=== PATIENT | female | born 1975 | race African-American/Black ===

== ENCOUNTER 2019-10-03 16:44 | Observation (INO) ==
[2019-10-03] MEDS ORDERED: ONDANSETRON 4 MG/2 ML VIAL IV STA ×2 (17:23→18:35)
[2019-10-03] MEDS ORDERED: SODIUM CHLORIDE 0.9% 1,000 ML IV STA (17:23)
[2019-10-03 17:33] LABS: Apearance,Urine Slightly Hazy (Clear); Bacteria,Urine Occasional /HPF (Few); Bilirubin,Urine Negative (Negative); Blood, Urine Negative (Negative); Glucose,Urine (UA) Negative (Negative); Ketones,Urine 20 mg/dL (Negative); Mucus,Urine Occasional /LPF (Occasional); Nitrite,Urine Negative (Negative); Protein,Urine Negative; RBC,Urine 5 /HPF (0-4); Squamous Epithelial Cell,Urine Moderate /HPF (0-10); Urine Color Yellow (Yellow); Urine Specific Gravity 1.021 (1.001-1.035); Urine Urobilinogen < 2.0 EU/DL (0.2-1.0); WBC,Urine 2 /HPF (0-6)
[2019-10-03 18:08] LABS: Albumin 3.4 G/DL (3.4-5.0); Bilirubin,Total 0.4 MG/DL (0.2-1.0); Calcium 8.8 MG/DL (8.5-10.1); Osmolality,Calculated 272.7 MOS/KG (273-304); Total Protein 7.9 G/DL (6.4-8.3)
[2019-10-03 18:14] LABS: Basophils % 0.1 % (0.0-0.8); Hematocrit 35.4 VOL% (35.7-47.0); Hemoglobin 10.6 GM/DL (12.0-16.0); Immature Granulocytes % 0.3 %; Immature Granulocytes Absolute 0.03 #; Lymphocytes % 10.8 % (21.3-54.2); Mean Corpuscular HGB Conc 29.9 GM/DL (32-36); Mean Corpuscular Volume 74.7 FL (87-102); Mean Platelet Volume 10.4 FL (9.6-12.0); Monocytes % 3.6 % (1.7-12.7); Neutrophils % 85.2 % (38.7-73.9); Platelet Count 319 T/CUMM (130-400); Red Blood Count 4.74 MC/CUMM (3.8-5.5); Red Cell Distribution Width 15.6 % (9.3-17.3); White Blood Count 9.6 T/CUMM (4-12)
[2019-10-03] MEDS ORDERED: HYDROmorphone 2 MG/1 ML VIAL IV STA (19:15)
[2019-10-03] MEDS ORDERED: AMPICILLIN/SULBACTAM 3,000 MG in SODIUM CHLORIDE 0.9% 100 ML IV STA (19:16)
[2019-10-03] MEDS ORDERED: ONDANSETRON 4 MG/2 ML VIAL IV PRN (19:29)
[2019-10-03] MEDS ORDERED: HYDROmorphone 2 MG/1 ML VIAL IV PRN (19:29)
[2019-10-03] MEDS: PANTOPRAZOLE 40 MG TABLET PO SCH (21:26)
[2019-10-03] MEDS: LACTATED RINGERS 1,000 ML IV SCH (21:27)
[2019-10-04] MEDS: LACTATED RINGERS 1,000 ML IV SCH ×3 (03:11→17:19)
[2019-10-04] MEDS: AMPICILLIN/SULBACTAM 3,000 MG in SODIUM CHLORIDE 0.9% 100 ML IV SCH ×4 (04:26→22:32)
[2019-10-04] MEDS ORDERED: TISSUE ADHESIVE 1 EACH APPLICATOR TOP ONE (06:12)
[2019-10-04] MEDS ORDERED: BUPIVACAINE MPF 0.25% 30 ML VIAL ONE (06:12)
[2019-10-04] MEDS ORDERED: LIDOCAINE 1%/EPI INJ 20 ML VIAL ONE (06:12)
[2019-10-04] MEDS: PANTOPRAZOLE 40 MG TABLET PO SCH (09:43)
[2019-10-04] MEDS ORDERED: ACETAMINOPHEN 325 MG TABLET PO PRN (14:21)
[2019-10-05] MEDS: LACTATED RINGERS 1,000 ML IV SCH ×3 (01:58→23:45)
[2019-10-05] MEDS: AMPICILLIN/SULBACTAM 3,000 MG in SODIUM CHLORIDE 0.9% 100 ML IV SCH ×4 (04:17→21:07)
[2019-10-05] MEDS ORDERED: FAMOTIDINE 20 MG TABLET PO ONE (07:48)
[2019-10-05] MEDS ORDERED: FAMOTIDINE 20 MG TABLET ONE (07:55)
[2019-10-05] MEDS ORDERED: TISSUE ADHESIVE 1 EACH APPLICATOR TOP ONE (08:15)
[2019-10-05] MEDS ORDERED: BUPIVACAINE 0.5% 50 ML VIAL ONE (08:15)
[2019-10-05] MEDS ORDERED: LIDOCAINE 1%/EPI INJ 20 ML VIAL ONE (08:15)
[2019-10-05] MEDS ORDERED: DEXAMETHASONE 4 MG/1 ML VIAL ONE (09:34)
[2019-10-05] MEDS ORDERED: propofoL 200 MG/20 ML VIAL IV ONE (09:34)
[2019-10-05] MEDS ORDERED: SEVOFLURANE 1 UNIT/15 MINUTE INH ONE (09:34)
[2019-10-05] MEDS ORDERED: GLYCOPYRROLATE 0.4 MG/2 ML VIAL ONE (09:34)
[2019-10-05] MEDS ORDERED: fentaNYL 100 MCG/2 ML VIAL ONE (09:34)
[2019-10-05] MEDS ORDERED: ONDANSETRON 4 MG/2 ML VIAL ONE ×2 (09:34→09:42)
[2019-10-05] MEDS ORDERED: MIDAZOLAM 2 MG/2 ML VIAL ONE (09:34)
[2019-10-05] MEDS ORDERED: LIDOCAINE 2% 5 ML VIAL ONE (09:34)
[2019-10-05] MEDS ORDERED: SUCCINYLCHOLINE 200 MG/10 ML VIAL ONE (09:35)
[2019-10-05] MEDS ORDERED: ACETAMINOPHEN 1,000 MG/100 ML VIAL IV ONE (09:35)
[2019-10-05] MEDS ORDERED: ROCURONIUM 100 MG/10 ML VIAL IV ONE (09:35)
[2019-10-05] MEDS ORDERED: LACTATED RINGERS 1,000 ML IV ONE (09:35)
[2019-10-05] MEDS ORDERED: NEOSTIGMINE 10 MG/10 ML VIAL ONE (09:35)
[2019-10-05] MEDS ORDERED: HYDROmorphone 2 MG/1 ML VIAL ONE (09:42)
[2019-10-05] MEDS ORDERED: ONDANSETRON 4 MG/2 ML VIAL IV PRN (09:43)
[2019-10-05] MEDS: HYDROmorphone 2 MG/1 ML VIAL IV PRN ×4 (09:45→10:00)
[2019-10-05] MEDS: PANTOPRAZOLE 40 MG TABLET PO SCH (11:48)
[2019-10-06] MEDS: AMPICILLIN/SULBACTAM 3,000 MG in SODIUM CHLORIDE 0.9% 100 ML IV SCH ×2 (03:41→10:30)
[2019-10-06] MEDS: PANTOPRAZOLE 40 MG TABLET PO SCH (08:33)
[2019-10-06 11:59] VITALS: BP 129/78
== END 2019-10-06 14:40 | disposition home or self-care (01) ==
LOC: N.EDINP 16:44 → N.ED 16:44 → N.3E 19:55
PROVIDERS: ADMIT Surgery; ATTEND Surgery